=== PATIENT | male | born 1950 | race Caucasian/White ===

== ENCOUNTER 2017-04-23 08:18 | Emergency (ER) | payer MEDICARE ==
[~2017-04-23] VITALS: Ht 177.8 cm; Wt 73.0 kg
[2017-04-23 08:25] VITALS: BP 129/87; PULSE 108; RESP 18; TEMP 98.1; O2SAT 98
[2017-04-23] MEDS ORDERED: CEPHALEXIN MONOHYDRATE 500 MG CAP PO ONE (09:00)
[2017-04-23 09:01] VITALS: BP 176/90; PULSE 91; RESP 16; O2SAT 98
[2017-04-23] MEDS ORDERED: CEPH-460 PO (09:04)
--- NOTE | 2017-04-23 09:04 | PD ---
HPI Chief Complaint: Injury Time Seen by Provider: 08:27 Travel History International Travel<30 days: No Contact w/Intl Traveler<30days: No Traveled to known affect area: No History of Present Illness HPI 66-year-old male complains of bleeding from the right ear. Patient has history of right ear infection and right ear deformity for the past few months. Patient has been seen by ENT and plastic surgeon. No surgical procedure done so far. Patient has strong family history of severe reaction to anesthesia including himself. 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 Patient started having bleeding from the right ear after he struck the right ear against a door yesterday. Patient states that he was bleeding throughout the day in the night last night. Patient complains of mild ear pain , sharp pain in the right ear. Patient denies any pain radiation. Patient complains of dizziness this morning and he had a syncopal episode in the ED. Patient hasn't headache, visual change, neck pain, injury during the episode. Patient does not want any blood test done today or blood products given IV fluid given. PFSH Past Medical History Medical History: Denies Significant Hx Past Surgical History Surgical History: No Previous Surgery Social History Alcohol Use: No Tobacco Use: No Substance Use: No Allergies-Medications Reported Meds & Prescriptions Reported Meds & Active Scripts Active No Active Prescriptions or Reported Medications Review of Systems General / Constitutional: No: Fever Eyes: No: Visual changes HENT: Positive: Other, No: Headaches Cardiovascular: No: Chest Pain or Discomfort Respiratory: No: Shortness of Breath Gastrointestinal: No: Abdominal Pain Genitourinary: No: Dysuria Musculoskeletal: No: Pain Skin: No Rash Neurologic: No: Weakness Psychiatric: No: Depression Endocrine: No: Polydipsia Hematologic/Lymphatic: No: Easy Bruising Physical Exam Narrative GENERAL: Well-nourished, well-developed patient. SKIN: Focused skin assessment warm/dry. HEAD: Normocephalic. EYES: No scleral icterus. No injection or drainage. NECK: Supple, trachea midline. No JVD or lymphadenopathy. CARDIOVASCULAR: Mild tachycardia rate and rhythm without murmurs, gallops, or rubs. RESPIRATORY: Breath sounds equal bilaterally. No accessory muscle use. GASTROINTESTINAL: Abdomen soft, non-tender, nondistended. MUSCULOSKELETAL: No cyanosis, or edema. BACK: Nontender without obvious deformity. No CVA tenderness. Obvious deformity wound on the right earlobe a large blood clots covering the right ear canal. Mild oozing blood noted. Data Data Last Documented VS Vital Signs Date Time Temp Pulse Resp B/P (MAP) Pulse Ox O2 Delivery O2 Flow Rate FiO2 04/23/17 08:25 98.1 108 18 129/87 (101) 98 MDM Medical Decision Making Medical Screen Exam Complete: Yes Emergency Medical Condition: Yes Differential Diagnosis Differential diagnosis including bleeding from right ear lobe. Narrative Course 66-year-old male with persistent bleeding right ear lobe. 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 I spoke with ENT Dr. Gonzalez. Patient will be seen in the office now. Pressure dressing applied. Keflex 500 mg by mouth given. Patient refused blood work, IV fluids today. Diagnosis Primary Impression: Bleeding from right ear Patient Instructions: General Instructions Additional Instructions: Go to ENT office Dr. Gonzalez now. Med/Other Pt SpecificInfo: Prescription(s) given Scripts Cephalexin (Keflex) 500 Mg Capsule 500 MG PO TID for Infection, #21 CAP 0 Refills Prov: Ludwin Spear MD 04/23/17 Disposition: 01 DISCHARGE HOME Condition: Stable Ludwin Spear MD Apr 23, 2017 09:04
[2017-04-23] MEDS ORDERED: ACETAMINOPHEN 325 MG TAB PO ONE (09:15)
== END 2017-04-23 09:26 | disposition home or self-care (01) ==
LOC: PHED 08:18
DX: H92.21 Otorrhagia, right ear (principal)
CPT/HCPCS: 99283